=== PATIENT | female | born 1980 | race Two or more races ===

== ENCOUNTER 2019-01-14 10:24 | Emergency (ER) | payer MEDICAID ==
[~2019-01-14] VITALS: Ht 160 cm; Wt 90.7 kg
[2019-01-14 11:41] VITALS: BP 148/88
[2019-01-14] MEDS ORDERED: PROMETHAZINE HCL 25 MG/ML 1ML IM ONE (13:00)
[2019-01-14] MEDS ORDERED: MEPERIDINE HCL (50 MG/ML) 1 ML VIAL IM ONE (13:00)
== END 2019-01-14 13:48 | disposition home or self-care (01) ==
LOC: EDBD 10:24 → ER 10:24
DX: M54.16 Radiculopathy, lumbar region (principal); M54.5 Low back pain; G89.29 Other chronic pain
CPT/HCPCS: 72100; 96372; 99283; J2175; J2550